=== PATIENT | female | born 1965 | race Caucasian/White ===

== ENCOUNTER 2017-10-19 08:40 | Emergency (ER) | payer MEDICARE, OTHER ==
[2017-10-19] MEDS ORDERED: Ketorolac Tromethamine 30 MG/ML VIAL ONE (08:59)
== END 2017-10-19 09:05 | disposition home or self-care (01) ==
LOC: SCSER 08:40
DX: M25.561 Pain in right knee (principal); E78.5 Hyperlipidemia, unspecified; I10 Essential (primary) hypertension; M06.9 Rheumatoid arthritis, unspecified; Z87.891 Personal history of nicotine dependence; Z79.899 Other long term (current) drug therapy
CPT/HCPCS: 96372; J1885

== ENCOUNTER 2018-04-02 02:20 | Emergency (ER) | payer MEDICARE, OTHER, MEDICAID ==
[2018-04-02] MEDS ORDERED: Morphine 5 MG/ML SYRINGE ONE (02:48)
[2018-04-02] MEDS ORDERED: Ondansetron ODT 4 MG TAB ONE (02:48)
[2018-04-02 03:03] LABS: #Eosinphils 0.1 thou/uL (0.0-0.7); #Lymphocytes 1.7 thou/uL (1.20-3.40); #Monocytes 0.5 thou/uL (0.11-0.59); #Neutrophils 4.1 thou/uL (1.40-6.50); %Basophils 0.7 % (0.0-1.0); %Lymphocytes 26.5 % (21.0-51.0); %Monocytes 7.3 % (0.0-10.0); %Neutrophils 64.5 % (42.0-75.0); Hemoglobin 15.3 g/dL (12.0-16.0); Mean Corpuscular HGB CONC 34.3 g/dL (32.0-36.0); Mean Corpuscular Hemoglobin 29.9 pg (27.0-31.0); Mean Corpuscular Volume 87.2 fl (81.0-99.0); Mean Platelet Volume 11.5 fL (7.4-10.4); Platelet Count 188 thou/uL (130-400); RBC Distribution Width 11.6 % (11.5-14.5); Red Blood Cell (RBC) Count 5.12 mill/uL (4.20-5.40); White Blood Cell (WBC) Count 6.3 thou/uL (4.8-10.8)
[2018-04-02 03:10] LABS: ALT (SGPT) 16 U/L (8-55); AST (SGOT) 20 U/L (5-34); Albumin 4.4 g/dL (3.5-5.0); Alkaline Phosphatase 81 U/L (40-150); Anion Gap 13 mmol/L (10-20); BUN (Urea Nitrogen) 21 mg/dL (9.8-20.1); Bilirubin, Total 0.6 mg/dL (0.2-1.2); Calc. Creatinine Clearance 0 mL/min (70-130); Calcium 10.2 mg/dL (7.8-10.44); Carbon Dioxide 27 mmol/L (22-29); Chloride 105 mmol/L (98-107); Estimated GFR-MDRD 76; Globulin 2.7 g/dL (2.4-3.5); Glucose 113 mg/dL (70-105); Lipase 60 U/L (8-78); Potassium 4.2 mmol/L (3.5-5.1); Protein, Total 7.1 g/dL (6.0-8.3); Sodium 141 mmol/L (136-145)
[2018-04-02 03:11] LABS: CKMB 6.6 ng/mL (0-6.6); Troponin I Less than 0.010 ng/mL (< 0.028)
[2018-04-02] MEDS ORDERED: Ketorolac Tromethamine 30 MG/ML VIAL ONE (03:36)
[2018-04-02 03:38] LABS: Bilirubin Negative (Negative); Blood, Urine Negative (Negative); Clarity Clear (Clear); Glucose, Urine (Dipstick) Negative (Negative); Leukocyte Negative (Negative); Nitrite Negative (Negative); Protein, Urine (Dipstick) Negative (Neg-Trace); Specific Gravity, Urine 1.015 (1.005-1.030); Urobilinogen 0.2 mg/dL (0.2-1.0)
[2018-04-02] MEDS ORDERED: Magnesium Citrate 300 ML BOT ONE (06:06)
--- NOTE | 2018-04-02 09:22 | CT ---
PRELIMINARY REPORT/[facility]/EMERGENTY AFTER-HOURS PROCEDURE CT Abdomen and Pelvis With Intravenous Contrast CLINICAL HISTORY: 53 years old, female; Pain; Abdominal pain; Prior surgery; Surgery date: 6+ months; Patient HX: HX of multiple hernias and a previous colostomy with re-anastamosis. TECHNIQUE: Axial computed tomography images of the abdomen and pelvis with intravenous contrast. Coronal reforma tted images were created and reviewed. COMPARISON: No relevant prior studies available. FINDINGS: Lung bases: Unremarkable. No mass. No consolidation. ABDOMEN: Liver: Minimal intrahepatic biliary ductal dilatation No mass. Gallbladder and bile ducts: Prior cholecystectomy. No ductal dilation. Pancreas: No mass. Mild ductal prominence. Spleen: Unremarkable. No splenomegaly. Adrenals: Unremarkable. No mass. Kidneys and ureters: Unremarkable. No solid mass. No hydronephrosis. Stomach and bowel: Postsurgical changes in the proximal sigmoid colon. Minimal colonic diverticulosis noted. Moderate stool in the colon No obstruction. No mucosal thickening. PELVIS: Appendix: No findings to suggest acute appendicitis. Bladder: Unremarkable. No mass. Reproductive: Unremarkable as visualized. ABDOMEN and PELVIS: Intraperitoneal space: Unremarkable. No free air. No significant fluid collection. Bones/joints: No acute fracture. No dislocation. Postsurgical changes in the lower lumbar spine Soft tissues: Unremarkable. Vasculature: Atherosclerosis. No abdominal aortic aneurysm. Lymph nodes: Unremarkable. No enlarged lymph nodes. IMPRESSION: Nonspecific nonobstructed bowel gas pattern which may represent mild ileus secondary to constipation Minimal colonic diverticulosis without diverticulitis Minimal prominence to the pancreatic ducts. Comparison with prior images of the helpful. No definite peripancreatic inflammatory change to suggest pancreatitis. Further correlation with amylase and lipa se levels as clinically indicated Thank you for allowing us to participate in the care of your patient. Dictated and Authenticated by: Ellis Cooper MD 04/02/2018 5:38 AM Central Time ([place] & [place]) FINAL REPORT EMERGENCY AFTER HOURS CT ABDOMEN AND PELVIS WITH IV AND ORAL CONTRAST: Date: 04/02/18 Time: 0431 hours HISTORY: Abdominal pain, prior bowel surgery. COMPARISON: 01/31/14. FINDINGS: Findings agree with the preliminary report by Adam. No reliable CT evidence of bowel obstruction. Pos toperative changes are apparent. Very mild distention of the pancreatic and biliary ductal system. Wi th gallbladder surgically absent, this may be physiologic. POS: [facility]
== END 2018-04-02 07:08 | disposition home or self-care (01) ==
LOC: SCSER 02:20
DX: K59.00 Constipation, unspecified (principal); E78.5 Hyperlipidemia, unspecified; I10 Essential (primary) hypertension; K21.9 Gastro-esophageal reflux disease without esophagitis; Z87.891 Personal history of nicotine dependence; Z79.899 Other long term (current) drug therapy
CPT/HCPCS: 74177; 80053; 81003; 82553; 83690; 84484; 85025; 93005; 96374; 96375; J2270; J1885; Q0162

== ENCOUNTER 2018-11-19 15:08 | Outpatient (CLI) | payer MEDICARE, OTHER ==
--- NOTE | 2018-11-20 09:05 | MMO ---
BILATERAL SCREENING MAMMOGRAM: HISTORY: A 53-year-old female. Routine screening mammography. COMPARISON: 05/02/2016 and 01/08/2012 TECHNIQUE: CC and MLO views of both breasts were submitted for interpretation. This patient's mammogram is revi ewed with the assistance of computer aided detection. FINDINGS: The breasts are composed of heterogeneously dense fibroglandular tissue, which limits the sensitivity of mammography in the detection of underlying malignancy. Bilaterally, no suspicious dominant mass, architectural distortion, or suspicious calcification. Bilateral benign appearing calcifications ar e identified. IMPRESSION: BI-RADS Category 2-Benign findings. RECOMMENDATIONS: Annual mammogram. POS: [facility]
== END 2018-11-19 15:09 | disposition home or self-care (01) ==
LOC: SCSMAMMO 15:08
PROVIDERS: ATTEND Nurse Practitioner Family
DX: Z12.31 Encounter for screening mammogram for malignant neoplasm of breast (principal)
CPT/HCPCS: 77067

== ENCOUNTER 2018-12-24 16:15 | Outpatient (CLI) | payer MEDICARE, OTHER ==
--- NOTE | 2018-12-24 17:07 | RAD ---
TWO VIEWS LEFT TIBIA AND FIBULA: 12/24/18 HISTORY: Fall with anterior lam pain. AP and lateral views left tibia and fibula demonstrates no evidence of fractures or subluxations or b sofía lesions. No osseous lesions or abnormalities seen. Soft tissues are unremarkable. IMPRESSION: Unremarkable two views left tibia and fibula. POS: [facility]
== END 2018-12-24 16:16 | disposition home or self-care (01) ==
LOC: SCSRAD 16:15
PROVIDERS: ATTEND Nurse Practitioner Family
DX: M79.662 Pain in left lower leg (principal)

== ENCOUNTER 2019-04-02 10:58 | Outpatient (CLI) | payer MEDICARE, OTHER ==
--- NOTE | 2019-04-02 11:50 | RAD ---
RIGHT FOOT 3 VIEWS: HISTORY: Plantar foot pain. FINDINGS/IMPRESSION: No fracture, dislocation, or bony destruction is seen. A posterior calcaneal spur is present. POS: [facility]
== END 2019-04-02 10:59 | disposition home or self-care (01) ==
LOC: SCSRAD 10:58
PROVIDERS: ATTEND Nurse Practitioner Family
DX: M79.671 Pain in right foot (principal); M77.31 Calcaneal spur, right foot

== ENCOUNTER 2019-12-08 06:36 | Day surgery (SDC) | payer MEDICARE, OTHER ==
--- NOTE | 2019-12-07 08:59 | HP ---
HISTORY OF PRESENT ILLNESS: The patient is a 54-year-old female, who has severe history of left carpal tunnel syndrome, which she is managed conservatively with anti-inflammatory medications and night splinting. The symptoms became much worse after sustaining a fracture of left distal radius 2.5 months ago. Fracture is healed, but she has had persistent pain and tingling in median nerve distribution despite rest, restriction of activities, anti-inflammatory medications, and continued splinting. PAST MEDICAL HISTORY: The patient has history of hypertension and high cholesterol. She had previous hysterectomy. 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 CURRENT MEDICATIONS: 1. Pravastatin. 2. Estradiol. 3. Metoprolol. 4. Relafen. 5. Lisinopril. ALLERGIES: SHE IS ALLERGIC TO AUGMENTIN AND FLAGYL, BUT HAS NO PROBLEMS TOLERATING CEPHALOSPORINS OR PENICILLIN. FAMILY HISTORY: Otherwise unremarkable. SOCIAL HISTORY: Otherwise unremarkable. REVIEW OF SYSTEMS: Otherwise unremarkable. PHYSICAL EXAMINATION: GENERAL: A healthy female. HEENT: Unremarkable. NECK: Supple. CHEST: Clear. HEART: Regular rate and rhythm. ABDOMEN: Soft and nontender. PELVIC/RECTAL/BREAST: Deferred. EXTREMITIES: Pertinent findings in the left wrist; there is minimal swelling, there are no open wounds, no bony tenderness. She has some slight stiffness in her wrist, but this is increasing following her recent injury. She has a questionable weakness of thumb opposition. There is a positive Tinel sign and positive Phalen test. There is subjective numbness in median nerve distribution. There are good distal pulses and good capillary refill. There is no crepitus or instability. DIAGNOSTIC DATA: X-rays reveal further healing of the minimally-displaced intra-articular fracture of the distal radius. Previous electrodiagnostic studies performed by reveal left carpal tunnel syndrome. IMPRESSION: Left carpal tunnel syndrome status post fracture of left distal radius. PLAN: Endoscopic possible open left carpal tunnel release. The nature of the surgery, length of recovery, and potential complications such as infection, loss of motion, incomplete relief, nerve injury, recurrence, need for additional treatment, and repeat surgery have been discussed in detail. Job ID: [id number]
[2019-12-07 10:50] VITALS: BMI 26.3
[2019-12-08] MEDS ORDERED: Lidocaine 1% (PF) 30 ML VIAL ONE (06:48)
[2019-12-08 07:04] LABS: #Eosinphils 0.1 thou/uL (0.0-0.7); #Lymphocytes 1.7 thou/uL (1.20-3.40); #Monocytes 0.5 thou/uL (0.11-0.59); #Neutrophils 2.9 thou/uL (1.40-6.50); %Basophils 0.3 % (0.0-1.0); %Eosinophils 1.5 % (0.0-10.0); %Lymphocytes 31.9 % (21.0-51.0); %Monocytes 9.4 % (0.0-10.0); %Neutrophils 56.9 % (42.0-75.0); Hemoglobin 14.8 g/dL (12.0-16.0); Mean Corpuscular HGB CONC 34.7 g/dL (32.0-36.0); Mean Corpuscular Hemoglobin 30.8 pg (27.0-31.0); Mean Corpuscular Volume 88.8 fL (78.0-98.0); Mean Platelet Volume 8.3 fL (7.4-10.4); Platelet Count 195 thou/uL (130-400); RBC Distribution Width 11.8 % (11.5-14.5); Red Blood Cell (RBC) Count 4.81 mill/uL (4.20-5.40); White Blood Cell (WBC) Count 5.2 thou/uL (4.8-10.8)
[2019-12-08 07:22] LABS: Anion Gap 12 mmol/L (10-20); BUN (Urea Nitrogen) 19 mg/dL (9.8-20.1); Calc. Creatinine Clearance 99 mL/min (70-130); Calcium 9.2 mg/dL (7.8-10.44); Carbon Dioxide 29 mmol/L (22-29); Chloride 107 mmol/L (98-107); Estimated GFR-MDRD 78; Glucose 110 mg/dL (70-105); Potassium 4.9 mmol/L (3.5-5.1); Sodium 143 mmol/L (136-145)
[2019-12-08] MEDS ORDERED: Midazolam HCl 2 mg/2 ml Vial ONE ×2 (07:54→08:28)
[2019-12-08] MEDS ORDERED: Fentanyl 100 MCG/2 ML VIAL ONE ×3 (08:28→10:29)
[2019-12-08] MEDS ORDERED: CEFAZOLIN 1 GM VIAL ONE (09:24)
[2019-12-08] MEDS ORDERED: PROPOFOL 200 MG/20 ML VIAL ONE (09:24)
[2019-12-08] MEDS ORDERED: Promethazine HCl 25 MG/ML VIAL ONE (10:57)
--- NOTE | 2019-12-08 11:10 | OP ---
DATE OF PROCEDURE: 12/08/2019 ANESTHESIA: General. PREOPERATIVE DIAGNOSIS: Left carpal tunnel syndrome. POSTOPERATIVE DIAGNOSIS: Left carpal tunnel syndrome. PROCEDURE PERFORMED: Left endoscopic carpal tunnel release. DESCRIPTION OF PROCEDURE: After satisfactory anesthesia was induced in supine position, the patient was prepped and draped in routine manner. The left arm was elevated and exsanguinated with an Esmarch bandage and the tourniquet inflated to 250 mmHg. A 2-cm transverse incision was made in the proximal wrist flexion crease, carried down through the subcutaneous tissues and bleeding points were controlled with Bovie cautery. Using sharp and blunt dissection, a distally based flap at the deep forearm fascia was developed and retracted distally. Palmaris longus tendon was retracted radially. Proximal edge of the deep forearm fascia was split under direct visualization to make sure there was no proximal impingement of the median nerve. Synovial elevators were introduced beneath the transverse carpal ligament in line with the ring finger. Carpal tunnel dilators were inserted. A 5th Fingere endoscopic carpal tunnel system was introduced beneath the transverse carpal ligament in line with the ring finger. The distal edge of the ligament was easily identified and then divided in a distal to proximal direction by pulling the trigger of the assembly and engaging the knife and withdrawing the scope proximally. This was done in several stages to make sure there was complete division of the transverse carpal ligament, which was documented with the video printer. After withdrawing the scope, the carpal tunnel dilator could be inserted into the carpal tunnel and there was markedly improved passage and subcutaneous position of the instrument. The scope was reintroduced into the carpal tunnel. There was wide separation of the 2 leaves of the transverse carpal ligament. The tourniquet was released after 7 minutes. There was no excessive bleeding and the scope was withdrawn. The wound was thoroughly irrigated and closed with a running subcuticular 3-0 nylon. A sterile dressing was applied and the patient immobilized in a Velcro wrist splint. She was awakened and taken to the recovery room in stable condition. There were no apparent intraoperative complications. The estimated blood loss was negligible. The patient will be discharged home in satisfactory condition, instructed on ice and elevation, and given written wound care instructions. She was given prescription for Depue 5 for pain, 15 tablets. She will be rechecked in my office in 10 to 14 days or sooner if there are any problems prior to that time. Job ID: [id number]
[2019-12-08] MEDS ORDERED: HYDROcodone/Acetaminophen 5/325 mg Tablet ONE (12:14)
--- NOTE | 2019-12-10 15:19 | EKG ---
Test Reason : PREOP Blood Pressure : / mmHG Vent. Rate : 050 BPM Atrial Rate : 050 BPM P-R Int : 172 ms QRS Dur : 088 ms QT Int : 452 ms P-R-T Axes : 046 018 022 degrees QTc Int : 412 ms Sinus bradycardia Otherwise normal ECG Confirmed by DR. Ramirez MULLINS ([id number]) on 12/10/2019 3:19:05 PM Referred By: JOHNY Confirmed By:DR. Ramirez MULLINS
== END 2019-12-08 12:55 | disposition home or self-care (01) ==
LOC: SDC 06:36
PROVIDERS: ATTEND Orthopaedic Surgery
PROC: 01N54ZZ Release Median Nerve, Percutaneous Endoscopic Approach (ICD-10-PCS; principal; 2019-12-08)
DX: G56.02 Carpal tunnel syndrome, left upper limb (principal); I10 Essential (primary) hypertension; E78.00 Pure hypercholesterolemia, unspecified; E78.5 Hyperlipidemia, unspecified; J45.909 Unspecified asthma, uncomplicated; G47.00 Insomnia, unspecified; S52.572D Other intraarticular fracture of lower end of left radius, subsequent encounter for closed fracture with routine healing; Z87.891 Personal history of nicotine dependence; Z79.899 Other long term (current) drug therapy; Z88.0 Allergy status to penicillin; Z88.1 Allergy status to other antibiotic agents; Z88.8 Allergy status to other drugs, medicaments and biological substances; W01.0XXD Fall on same level from slipping, tripping and stumbling without subsequent striking against object, subsequent encounter
CPT/HCPCS: 36415; 80048; 85025; 93005; 93010; J0690; J2001; J2250; J2550; J2704; J3010

== ENCOUNTER 2020-06-05 07:46 | Outpatient (CLI) | payer MEDICARE, OTHER ==
--- NOTE | 2020-06-05 10:53 | MRI ---
MRI RIGHT KNEE: Date: 06/05/2020 PROVIDED CLINICAL HISTORY: Pain. FINDINGS: No comparisons. The anterior cruciate ligament, posterior cruciate ligament, medial collateral ligament, and lateral collateral ligamentous complex demonstrate an intact MR appearance, as does the extensor mechanism. The medial and lateral menisci demonstrate no evidence for tear. There is focal subcortical marrow involving the posterior aspects of the lateral femoral condyle with overlying articular cartilage thinning/full thickness articular cartilage loss. Articular cartilage appears otherwise preserved. There is a large Alonzo's cyst. The aspects of the Alonzo's cyst which are cranial to the apposition of the semimembranosus and medial head gastrocnemius tendons demonstrate some blood products of varying ages. No discrete mass-like signal alteration is seen within the Alonzo's cyst. The amount of fluid within the knee joint appears physiologic. Regional marrow and muscular signal appear otherwise unremarkable. IMPRESSION: 1. Large Alonzo's cyst, out of proportion to the degree of joint fluid and demonstrating blood produc ts of varying ages. Consider correlating with postcontrast imaging to exclude mass. 2. 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 POS: [facility]
== END 2020-06-05 07:47 | disposition home or self-care (01) ==
LOC: SCSMRI 07:46
PROVIDERS: ATTEND Orthopaedic Surgery
DX: M23.91 Unspecified internal derangement of right knee (principal); M71.21 Synovial cyst of popliteal space [Baker], right knee; M94.28 Chondromalacia, other site

== ENCOUNTER 2021-06-22 10:51 | Day surgery (SDC) | payer MEDICARE, OTHER ==
[2021-06-21 11:22] VITALS: BMI 25.5
[2021-06-22] MEDS ORDERED: Bacitracin Zinc Ointment 30 gm TUBE ONE (16:54)
[2021-06-22] MEDS ORDERED: Bupivacaine PF 0.5% 30 ML VIAL ONE (16:54)
[2021-06-22] MEDS ORDERED: Midazolam HCl 2 mg/2 ml Vial ONE (16:57)
[2021-06-22] MEDS ORDERED: Fentanyl 100 MCG/2 ML VIAL ONE (16:57)
[2021-06-22] MEDS ORDERED: Propofol 500 MG/50 ML VIAL ONE (16:57)
[2021-06-22] MEDS ORDERED: Betamet Acet/Betamet Na Ph 30 MG/5 ML VIAL ONE (17:03)
[2021-06-22] MEDS ORDERED: Vancomycin 1 GM/200 ML BAG ONE (17:08)
[2021-06-22] MEDS ORDERED: Dexamethasone 20 MG/5 ML VIAL ONE (17:22)
[2021-06-22] MEDS ORDERED: Ondansetron PF 4 MG/2 ML Vial ONE (17:22)
[2021-06-22] MEDS ORDERED: Ketorolac Tromethamine 30 MG/ML VIAL ONE (17:22)
[2021-06-22] MEDS ORDERED: PROPOFOL 200 MG/20 ML VIAL ONE (17:22)
== END 2021-06-22 19:20 | disposition home or self-care (01) ==
LOC: SDC 10:51
PROVIDERS: ATTEND Orthopaedic Surgery Hand Surgery
PROC: 0LB80ZZ Excision of Left Hand Tendon, Open Approach (ICD-10-PCS; principal; 2021-06-22)
DX: M65.842 Other synovitis and tenosynovitis, left hand (principal); M65.332 Trigger finger, left middle finger; I10 Essential (primary) hypertension; E78.5 Hyperlipidemia, unspecified; J45.909 Unspecified asthma, uncomplicated; Z79.899 Other long term (current) drug therapy; Z87.891 Personal history of nicotine dependence; Z88.0 Allergy status to penicillin; Z88.1 Allergy status to other antibiotic agents; Z88.8 Allergy status to other drugs, medicaments and biological substances
CPT/HCPCS: 93005; 93010; J0702; J2250; J2704; J3010; J3370; S0020

== ENCOUNTER 2023-07-31 15:23 | Outpatient (CLI) | payer MEDICARE, OTHER ==
[2023-07-31 16:37] LABS: #Monocytes 0.4 10x3/uL (0.0-1.1); %Basophils 0.7 % (0.0-2.0); %Eosinophils 0.5 % (0.0-6.0); %Lymphocytes 26.8 % (18.0-47.0); %Neutrophils 64.7 % (40.0-75.0); Hematocrit 46.1 % (34.9-44.5); Hemoglobin 15.2 g/dL (12.0-15.5); Mean Corpuscular Hemoglobin 29.6 pg (27.0-33.0); Mean Corpuscular Volume 89.9 fl (81.6-98.3); Mean Platelet Volume 11.1 fl (7.4-10.4); Platelet Count 230 10x3/uL (150-450); RBC Distribution Width 12.2 % (11.5-14.5); Red Blood Cell (RBC) Count 5.13 10x6/uL (3.90-5.03); White Blood Cell (WBC) Count 6.1 10x3/uL (3.5-10.5)
== END 2023-07-31 15:24 | disposition home or self-care (01) ==
LOC: LABBT 15:23
PROVIDERS: ATTEND Orthopaedic Surgery Hand Surgery
DX: Z01.818 Encounter for other preprocedural examination (principal); M65.342 Trigger finger, left ring finger
CPT/HCPCS: 85025; 93005; 93010

== ENCOUNTER 2023-08-05 05:33 | Day surgery (SDC) | payer MEDICARE, OTHER ==
[2023-07-31 15:57] VITALS: BMI 25.5
[2023-08-05] MEDS ORDERED: Bacitracin Zinc Ointment 30 gm TUBE ONE (06:23)
[2023-08-05] MEDS ORDERED: Bupivacaine PF 0.5% 30 ML VIAL ONE (06:23)
[2023-08-05] MEDS ORDERED: fentaNYL PF 100 MCG/2 ML SYRINGE ONE (06:57)
[2023-08-05] MEDS ORDERED: LevoFLOXacin 500 mg/D5W 100 ML BAG ONE (07:12)
[2023-08-05] MEDS ORDERED: Clindamycin/D5W 900 mg/50 ml Premix Bag ONE (07:12)
[2023-08-05] MEDS ORDERED: Lidocaine 1% PF 5 ML VIAL ONE (07:25)
[2023-08-05] MEDS ORDERED: PROPOFOL 200 MG/20 ML VIAL ONE (07:25)
[2023-08-05] MEDS ORDERED: Promethazine HCl 25 MG/ML VIAL ONE (08:16)
[2023-08-05] MEDS ORDERED: Ondansetron PF 4 MG/2 ML Vial ONE (08:32)
== END 2023-08-05 10:44 | disposition home or self-care (01) ==
LOC: SDC 05:33
PROVIDERS: ATTEND Orthopaedic Surgery Hand Surgery
PROC: 0LN80ZZ Release Left Hand Tendon, Open Approach (ICD-10-PCS; principal; 2023-08-05)
DX: M65.342 Trigger finger, left ring finger (principal); M65.842 Other synovitis and tenosynovitis, left hand
CPT/HCPCS: J1956; J2405; J2550; J2704; J3490; S0020

== ENCOUNTER 2024-07-22 05:34 | Day surgery (SDC) | payer MEDICARE, OTHER ==
[2024-07-14 12:24] VITALS: BMI 26.3
[2024-07-22] MEDS ORDERED: Lidocaine 1% (PF) 30 ML VIAL ONE (06:24)
[2024-07-22] MEDS ORDERED: EPINEPHrine 1 MG/ML VIAL ONE (06:24)
[2024-07-22] MEDS ORDERED: fentaNYL PF 100 MCG/2 ML SYRINGE ONE ×3 (06:38→09:16)
[2024-07-22] MEDS ORDERED: Midazolam HCl 2 mg/2 ml Vial ONE (06:38)
[2024-07-22] MEDS ORDERED: PROPOFOL 20 ML ONE (06:38)
[2024-07-22] MEDS ORDERED: CEFAZOLIN 2 GM VIAL ONE (06:54)
[2024-07-22] MEDS ORDERED: Sodium Chloride 0.9% 100 ML ONE (06:54)
[2024-07-22] MEDS ORDERED: Bupivacaine PF 0.5% 30 ML VIAL ONE (06:54)
[2024-07-22] MEDS ORDERED: ePHEDrine Sulfate 50 MG/10 ML VIAL ONE (07:23)
[2024-07-22] MEDS ORDERED: Ondansetron PF 4 MG/2 ML Vial ONE ×2 (07:27→09:08)
[2024-07-22] MEDS ORDERED: Dexamethasone 20 MG/5 ML VIAL ONE (07:27)
[2024-07-22] MEDS ORDERED: Ketorolac Tromethamine 30 MG (1 mL) VIAL ONE (08:22)
[2024-07-22] MEDS ORDERED: Labetalol HCl 100 MG/20 ML VIAL ONE (08:35)
[2024-07-22] MEDS ORDERED: HYDROmorphone 0.5 MG/0.5 ML SYRINGE ONE ×2 (08:47→08:51)
[2024-07-22] MEDS ORDERED: Promethazine HCl 25 MG/ML VIAL ONE (08:54)
== END 2024-07-22 11:33 | disposition home or self-care (01) ==
LOC: SDC 05:34
PROVIDERS: ATTEND Orthopaedic Surgery
PROC: 01N40ZZ Release Ulnar Nerve, Open Approach (ICD-10-PCS; principal; 2024-07-22)
PROC: 0LN Tendons, Release (ICD-10-PCS; 2024-07-22)
DX: G56.21 Lesion of ulnar nerve, right upper limb (principal); M77.01 Medial epicondylitis, right elbow; M77.11 Lateral epicondylitis, right elbow; E78.5 Hyperlipidemia, unspecified; I10 Essential (primary) hypertension; M54.9 Dorsalgia, unspecified; G47.00 Insomnia, unspecified; J45.909 Unspecified asthma, uncomplicated; Z90.710 Acquired absence of both cervix and uterus; Z98.890 Other specified postprocedural states; Z90.89 Acquired absence of other organs; Z90.49 Acquired absence of other specified parts of digestive tract; Z79.899 Other long term (current) drug therapy; Z87.891 Personal history of nicotine dependence; Z88.0 Allergy status to penicillin; Z88.8 Allergy status to other drugs, medicaments and biological substances
CPT/HCPCS: 24358; 64718; A6223; J0171; J0665; J1100; J1170; J1885; J2250; J2405; J2550; J2704; J2001